=== PATIENT | male | born 1995 | race Caucasian/White ===

== ENCOUNTER 2017-11-19 14:07 | Emergency (ER) | payer OTHER ==
[~2017-11-19] VITALS: Ht 172.7 cm; Wt 65.8 kg
[2017-11-19 14:14] VITALS: BP 125/84
[2017-11-19] MEDS ORDERED: IBUPROFEN 600600 M1 PO (14:49)
== END 2017-11-19 14:55 | disposition home or self-care (01) ==
LOC: ER 14:07
DX: S93.692A Other sprain of left foot, initial encounter (principal); F17.210 Nicotine dependence, cigarettes, uncomplicated; X58.XXXA Exposure to other specified factors, initial encounter; Y93.51 Activity, roller skating (inline) and skateboarding; Y92.89 Other specified places as the place of occurrence of the external cause; Y99.8 Other external cause status

== ENCOUNTER 2017-12-27 12:20 | Emergency (ER) | payer OTHER ==
[~2017-12-27] VITALS: Ht 172.7 cm; Wt 65.8 kg
[~2017-12-27 12:20] MED LIST: IBUPROFEN 600600 M1 PO
[2017-12-27 12:23] VITALS: BP 114/70
[2017-12-27] MEDS ORDERED: AMOXICILLIN 50500 MG PO (12:35)
[2017-12-27] MEDS ORDERED: MOBIC7.5 MG PO (12:35)
== END 2017-12-27 12:57 | disposition home or self-care (01) ==
LOC: ER 12:20
DX: H66.011 Acute suppurative otitis media with spontaneous rupture of ear drum, right ear (principal); F17.210 Nicotine dependence, cigarettes, uncomplicated